=== PATIENT | female | born 1980 | race Caucasian/White ===

== ENCOUNTER 2017-09-26 02:34 | Emergency (ER) | payer SELFPAY ==
[~2017-09-26] VITALS: Ht 154.9 cm; Wt 56.8 kg
[2017-09-26 02:35] VITALS: BP 104/60; PULSE 78; RESP 16; TEMP 98.6; O2SAT 100
[2017-09-26] MEDS ORDERED: TRAZ50TA12 PO (03:26)
[2017-09-26] MEDS ORDERED: SERO50TA PO (03:26)
[2017-09-26] MEDS ORDERED: LEVO.075 PO (03:26)
[2017-09-26 03:52] VITALS: PULSE 63; O2SAT 98
[2017-09-26] MEDS ORDERED: SODIUM CHLOR 0.9% 1000 ML INJ 1,000 ML IV SCH (04:00)
[2017-09-26] MEDS ORDERED: KETOROLAC TROMETHAMINE 30 MG/ML (IVP) VIAL IV PUSH ONE (04:00)
[2017-09-26] MEDS ORDERED: ONDANSETRON HCL 4 MG/2 ML VIAL IV PUSH ONE (04:00)
[2017-09-26 04:18] LABS: AMORPHOUS SEDIMENT, URINE RARE; AUTOMATED NEUTROPHIL # 5.3 TH/MM3 (1.8-7.7); BASOPHIL # 0.1 TH/MM3 (0-0.2); BASOPHIL % 1.1 % (0.0-2.0); BILIRUBIN, URINE NEG (NEG); BLOOD, URINE NEG (NEG); EOSINOPHIL # 0.4 TH/MM3 (0-0.4); GLUCOSE,URINE NEG (NEG); HEMATOCRIT 35.3 % (35.0-46.0); HEMOGLOBIN 11.8 GM/DL (11.6-15.3); KETONE, URINE NEG (NEG); LYMPH % 28.7 % (9.0-44.0); LYMPHOCYTE # 2.6 TH/MM3 (1.0-4.8); MEAN CELL VOLUME 93.8 FL (80.0-100.0); MEAN CORPUSCULAR HEMOGLOBIN 31.3 PG (27.0-34.0); MEAN CORPUSCULAR HGB CONC 33.3 % (32.0-36.0); MEAN PLATELET VOLUME 7.4 FL (7.0-11.0); MONO % 7.5 % (0.0-8.0); MONOCYTE # 0.7 TH/MM3 (0-0.9); MUCUS URINE MANY /lpf (OCC); NEUT % 58.7 % (16.0-70.0); NITRITE,URINE NEG (NEG); PH, URINE 5.5 (5.0-8.5); PLATELET COUNT 310 TH/MM3 (150-450); RED BLOOD COUNT 3.76 MIL/MM3 (4.00-5.30); RED CELL DISTRIBUTION WIDTH 14.2 % (11.6-17.2); SQUAMOUS EPITHELIAL CELL URINE 53 /hpf (0-5); URINE COLOR YELLOW (YELLW/STRAW); URINE LEUKOCYTE ESTERASE LARGE (NEG); WHITE BLOOD COUNT 8.9 TH/MM3 (4.0-11.0)
[2017-09-26 04:37] LABS: ALBUMIN 3.6 GM/DL (3.4-5.0); AST (GOT) 32 U/L (15-37); BICARBONATE 23.2 MEQ/L (21.0-32.0); BLOOD UREA NITROGEN 9 MG/DL (7-18); CALCIUM 8.2 MG/DL (8.5-10.1); CHLORIDE 106 MEQ/L (98-107); CREATININE 1.04 MG/DL (0.50-1.00); GLOMERULAR FILTRATION RATE 60 ML/MIN (>89); GLUCOSE,RANDOM 111 MG/DL (74-106); SODIUM (NA) 138 MEQ/L (136-145)
[2017-09-26 04:38] LABS: ALT (GPT) 32 U/L (10-53)
[2017-09-26 04:40] LABS: ALKALINE PHOSPHATASE 84 U/L (45-117); TOTAL BILIRUBIN ADULT 0.4 MG/DL (0.2-1.0); TOTAL PROTEIN 7.7 GM/DL (6.4-8.2)
--- NOTE | 2017-09-26 04:51 | PD ---
HPI Chief Complaint: Abdominal Pain Time Seen by Provider: 03:38 Travel History International Travel<30 days: No Contact w/Intl Traveler<30days: No Traveled to known affect area: No History of Present Illness HPI 37-year-old female complains of abdominal pain with nausea vomiting and diarrhea. Patient states that she had intermittent abdominal pain for the past month however worse for the past 2 days. Patient denies any headache. Patient denies any chest pain or shortness of breath. Patient states that abdominal pain and cramping pain diffuse over the abdomen. Patient denies any pain radiation. Patient denies any dysuria frequency. Patient denies any vaginal discharge or bleeding. PFSH Past Medical History Thyroid Disease: Yes Tetanus Vaccination: < 5 Years Influenza Vaccination: No ?: Not Tubal Ligation: Yes Past Surgical History Section: Yes (X6) Cholecystectomy: Yes Gynecologic Surgery: Yes (OVARIAN CYST) Other Surgery: Yes (FINGER ) Social History Alcohol Use: No Tobacco Use: Yes Substance Use: No Allergies-Medications (Allergen,Severity, Reaction): Coded Allergies: metoclopramide (Verified Allergy, Severe, 09/26/17) JITTERY morphine (Verified Allergy, Severe, 09/26/17) ITCHINESS Reported Meds & Prescriptions Reported Meds & Active Scripts Active Reported Synthroid (Levothyroxine Sodium) 75 Mcg Tab 75 Mcg PO DAILY Seroquel (Quetiapine Fumarate) 50 Mg Tab 50 Mg PO BID Trazodone (Trazodone HCl) 50 Mg Tab 50 Mg PO HS Review of Systems General / Constitutional: No: Fever Eyes: No: Visual changes HENT: No: Headaches Cardiovascular: No: Chest Pain or Discomfort Respiratory: No: Shortness of Breath Gastrointestinal: Positive: Nausea, Vomiting, Diarrhea, Abdominal Pain Genitourinary: No: Dysuria Musculoskeletal: No: Pain Skin: No Rash Neurologic: No: Weakness Psychiatric: No: Depression Endocrine: No: Polydipsia Hematologic/Lymphatic: No: Easy Bruising Physical Exam Narrative GENERAL: Well-nourished, well-developed patient. SKIN: Focused skin assessment warm/dry. HEAD: Normocephalic. EYES: No scleral icterus. No injection or drainage. NECK: Supple, trachea midline. No JVD or lymphadenopathy. CARDIOVASCULAR: Regular rate and rhythm without murmurs, gallops, or rubs. RESPIRATORY: Breath sounds equal bilaterally. No accessory muscle use. GASTROINTESTINAL: Abdomen soft, nondistended. Patient has moderate diffuse tenderness over the abdomen. No rebound tenderness. No mass. MUSCULOSKELETAL: No cyanosis, or edema. BACK: Nontender without obvious deformity. No CVA tenderness. Data Data Last Documented VS Vital Signs Date Time Temp Pulse Resp B/P (MAP) Pulse Ox O2 Delivery O2 Flow Rate FiO2 09/26/17 04:06 Room Air 98 09/26/17 03:52 63 98 09/26/17 02:35 98.6 16 104/60 (75) Orders Orders Complete Blood Count With Diff (09/26/17 03:52) Comprehensive Metabolic Panel (09/26/17 03:52) Lipase (09/26/17 03:52) Urinalysis - C+S If Indicated (09/26/17 03:52) Ct Abd/Pel W Iv Contrast(Rout) (09/26/17 03:52) Iv Access Insert/Monitor (09/26/17 03:52) Ecg Monitoring (09/26/17 03:52) Oximetry (09/26/17 03:52) Ed Urine Pregnancytest Poc (09/26/17 03:52) Sodium Chlor 0.9% 1000 Ml Inj (Ns 1000 M (09/26/17 04:00) Ketorolac Inj (Toradol Inj) (09/26/17 04:00) Ondansetron Inj (Zofran Inj) (09/26/17 04:00) Urine Culture (09/26/17 03:58) Iohexol 350 Inj (Omnipaque 350 Inj) (09/26/17 05:28) Labs Laboratory Tests Test 09/26/17 03:58 White Blood Count 8.9 TH/MM3 Red Blood Count 3.76 MIL/MM3 Hemoglobin 11.8 GM/DL Hematocrit 35.3 % Mean Corpuscular Volume 93.8 FL Mean Corpuscular Hemoglobin 31.3 PG Mean Corpuscular Hemoglobin Concent 33.3 % Red Cell Distribution Width 14.2 % Platelet Count 310 TH/MM3 Mean Platelet Volume 7.4 FL Neutrophils (%) (Auto) 58.7 % Lymphocytes (%) (Auto) 28.7 % Monocytes (%) (Auto) 7.5 % Eosinophils (%) (Auto) 4.0 % Basophils (%) (Auto) 1.1 % Neutrophils # (Auto) 5.3 TH/MM3 Lymphocytes # (Auto) 2.6 TH/MM3 Monocytes # (Auto) 0.7 TH/MM3 Eosinophils # (Auto) 0.4 TH/MM3 Basophils # (Auto) 0.1 TH/MM3 CBC Comment DIFF FINAL Differential Comment Urine Color YELLOW Urine Turbidity HAZY Urine pH 5.5 Urine Specific [place] 1.025 Urine Protein 30 mg/dL Urine Glucose (UA) NEG mg/dL Urine Ketones NEG mg/dL Urine Occult Blood NEG Urine Nitrite NEG Urine Bilirubin NEG Urine Urobilinogen 2.0 MG/DL Urine Leukocyte Esterase LARGE Urine RBC 9 /hpf Urine WBC 49 /hpf Urine Squamous Epithelial Cells 53 /hpf Urine Amorphous Sediment RARE Urine Mucus MANY /lpf Microscopic Urinalysis Comment CULTURE INDICATED Blood Urea Nitrogen 9 MG/DL Creatinine 1.04 MG/DL Random Glucose 111 MG/DL Total Protein 7.7 GM/DL Albumin 3.6 GM/DL Calcium Level 8.2 MG/DL Alkaline Phosphatase 84 U/L Aspartate Amino Transf (AST/SGOT) 32 U/L Alanine Aminotransferase (ALT/SGPT) 32 U/L Total Bilirubin 0.4 MG/DL Sodium Level 138 MEQ/L Potassium Level 3.4 MEQ/L Chloride Level 106 MEQ/L Carbon Dioxide Level 23.2 MEQ/L Anion Gap 9 MEQ/L Estimat Glomerular Filtration Rate 60 ML/MIN Lipase 114 U/L [facility] Medical Decision Making Medical Screen Exam Complete: Yes Emergency Medical Condition: Yes Interpretation(s) 4:50 AM. CBC within normal limits. Potassium 3.4. Creatinine 1.04. Glucose 111. Calcium 8.2. UA positive for WBC and bacteria. 6:26 AM. Last Impressions Abdomen/Pelvis CT 09/26/17 0352 Signed Impressions: Service Date/Time: Tuesday, September 26, 2017 05:18 - CONCLUSION: 1. No acute abnormality. 2. Prior cholecystectomy. Bennett Reyes Jr., MD Differential Diagnosis Differential diagnoses including gastritis, PUD, pancreatitis, cholecystitis, colitis, UTI, pyelonephritis, nephrolithiasis. Narrative Course 37-year-old female with abdominal pain nausea vomiting diarrhea. Normal saline solution 1 25 cc an hour. Toradol 30 mg IV. Zofran 4 mg IV. Diagnosis Primary Impression: Gastritis Qualified Codes: K29.00 - Acute gastritis without bleeding Additional Impression: UTI (urinary tract infection) Qualified Codes: N30.00 - Acute cystitis without hematuria Patient Instructions: General Instructions Additional Instructions: Take medications as directed. Follow-up with personal physician and medical billing associate. Return if worse. Med/Other Pt SpecificInfo: Prescription(s) given Scripts Sulfamethoxazole-Trimethoprim (Bactrim DS) 800-160 Mg Tab 1 TAB PO BID for Infection, #14 TAB 0 Refills Prov: Theo Dick MD 09/26/17 Dicyclomine (Bentyl) 10 Mg Cap 10 MG PO TID Y for Bowel Management, #21 CAP 0 Refills Prov: Theo Dick MD 09/26/17 Sucralfate (Carafate) 1 Gram Tab 1 GM PO QID for Ulcer Prevention, #120 TAB 0 Refills On empty stomach Prov: Theo Dick MD 09/26/17 Pantoprazole (Protonix) 40 Mg Tab 40 MG PO DAILY for Reflux, #30 TAB 0 Refills Prov: Theo Dick MD 09/26/17 Disposition: 01 DISCHARGE HOME Condition: Stable Theo Dick MD Sep 26, 2017 04:51
[2017-09-26] MEDS ORDERED: IOHEXOL 350 MG/ML 10 ML VIAL (for RAD DIAG) IVCONTRAST ONE (05:28)
--- NOTE | 2017-09-26 06:09 | RADRPT ---
EXAM DATE/TIME: 09/26/2017 05:18 [place] COMPARISON: No previous studies available for comparison. INDICATIONS : Abdominal pain. IV CONTRAST: 100 cc Omnipaque 350 (iohexol) IV ORAL CONTRAST: No oral contrast ingested. RADIATION DOSE: 5.10 CTDIvol (mGy) MEDICAL HISTORY : None SURGICAL HISTORY : Tubal ligation. Cholecystectomy. section. ENCOUNTER: Initial ACUITY: 1 day PAIN SCALE: 7/10 LOCATION: abdomen TECHNIQUE: Volumetric scanning of the abdomen and pelvis was performed. Using automated exposure control and ad justment of the mA and/or kV according to patient size, radiation dose was kept as low as reasonably achievable to obtain optimal diagnostic quality images. DICOM format image data is available electro nically for review and comparison. FINDINGS: LOWER LUNGS: The visualized lower lungs are clear. LIVER: Homogeneous density without lesion. There is no dilation of the biliary tree. Gallbladder is surgica lly absent. SPLEEN: Normal size without lesion. PANCREAS: Within normal limits. KIDNEYS: Normal in size and shape. There is no mass, stone or hydronephrosis. ADRENAL GLANDS: Within normal limits. VASCULAR: There is no aortic aneurysm. BOWEL/MESENTERY: The stomach, small bowel, and colon demonstrate no acute abnormality. There is no free intraperitone al air or fluid. ABDOMINAL WALL: Within normal limits. RETROPERITONEUM: There is no lymphadenopathy. BLADDER: No wall thickening or mass. REPRODUCTIVE: Within normal limits. INGUINAL: There is no lymphadenopathy or hernia. MUSCULOSKELETAL: Within normal limits for patient age. CONCLUSION: 1. No acute abnormality. 2. Prior cholecystectomy. Bennett Reyes Jr., MD on September 26, 2017 at 6:05 Board Certified Radiologist. This report was verified electronically.
[2017-09-26] MEDS ORDERED: DICY10 PO (06:31)
[2017-09-26] MEDS ORDERED: BACT800T5 PO (06:31)
[2017-09-26] MEDS ORDERED: CARA1TAB6 PO (06:31)
[2017-09-26] MEDS ORDERED: PROT40TA PO (06:31)
== END 2017-09-26 06:38 | disposition home or self-care (01) ==
LOC: NEPC 02:34
DX: K29.00 Acute gastritis without bleeding (principal); N30.00 Acute cystitis without hematuria; B96.20 Unspecified Escherichia coli [E. coli] as the cause of diseases classified elsewhere; Z72.0 Tobacco use; Z88.5 Allergy status to narcotic agent; Z79.899 Other long term (current) drug therapy
CPT/HCPCS: 74177; 80053; 81001; 83690; 84703; 85025; 87077; 87086; 87186; 96361; 96374; 96375; 99284; J1885; J2405; J7030; Q9967

== ENCOUNTER 2017-11-29 21:39 | Emergency (ER) | payer SELFPAY ==
[~2017-11-29] VITALS: Ht 157.5 cm; Wt 72.0 kg
[~2017-11-29 21:39] MED LIST: BACT800T5 PO; CARA1TAB6 PO; DICY10 PO; LEVO.075 PO; PROT40TA PO; SERO50TA PO; TRAZ50TA12 PO
[2017-11-29 21:41] VITALS: BP 116/67; PULSE 106; RESP 18; TEMP 98.9; O2SAT 98
[2017-11-29] MEDS ORDERED: ONDANSETRON ODT 4 MG TAB PO ONE (22:00)
[2017-11-29] MEDS ORDERED: KETAMINE HCL 500 MG/10 ML VIAL IV PUSH STA (22:00)
[2017-11-29] MEDS ORDERED: CLINDAMYCIN 600 MG/NS PREMIX 50 ML IV ONE (22:00)
[2017-11-29] MEDS ORDERED: HYDROmorphone HCL PF 2 MG/ML VIAL IV PUSH ONE (22:00)
--- NOTE | 2017-11-29 22:12 | PD ---
HPI Chief Complaint: Skin Problem Time Seen by Provider: 21:48 Travel History International Travel<30 days: No Contact w/Intl Traveler<30days: No Traveled to known affect area: No History of Present Illness HPI Is a 37-year-old woman presents emergency department complaining of abscess in the left arm. She states over the past 4 days she had more painful tenderness redness swelling of the ulnar side of the left arm and the elbow. States history of IV drug use. No fevers. Pain severe. No aggravating or alleviating factors. No history of previous similar symptoms. History Past Medical History Narrative Medical IV drug use Tetanus Vaccination: Unknown Influenza Vaccination: No LMP: 09/06/17 Social History Alcohol Use: No Tobacco Use: Yes Allergies-Medications (Allergen,Severity, Reaction): Coded Allergies: metoclopramide (Verified Allergy, Severe, 11/29/17) JITTERY morphine (Verified Allergy, Severe, 11/29/17) ITCHINESS Reported Meds & Prescriptions Reported Meds & Active Scripts Active Bactrim DS (Sulfamethoxazole-Trimethoprim) 800-160 Mg Tab 1 Tab PO BID Bentyl (Dicyclomine HCl) 10 Mg Cap 10 Mg PO TID PRN Carafate (Sucralfate) 1 Gram Tab 1 Gm PO QID On empty stomach Protonix (Pantoprazole Sodium) 40 Mg Tab 40 Mg PO DAILY Reported Synthroid (Levothyroxine Sodium) 75 Mcg Tab 75 Mcg PO DAILY Seroquel (Quetiapine Fumarate) 50 Mg Tab 50 Mg PO BID Trazodone (Trazodone HCl) 50 Mg Tab 50 Mg PO HS Review of Systems Except as stated in HPI: all other systems reviewed are Neg Physical Exam Narrative GENERAL: 37-year-old woman, appears uncomfortable, nontoxic. SKIN: Focused skin assessment warm/dry. HEAD: Atraumatic. Normocephalic. EYES: Pupils equal and round. No scleral icterus. No injection or drainage. ENT: No nasal bleeding or discharge. Mucous membranes pink and moist. NECK: Trachea midline. No JVD. CARDIOVASCULAR: Regular rate and rhythm. No murmur appreciated. RESPIRATORY: No accessory muscle use. Clear to auscultation. Breath sounds equal bilaterally. GASTROINTESTINAL: Abdomen soft, non-tender, nondistended. Hepatic and splenic margins not palpable. MUSCULOSKELETAL: Focused evaluation of the left arm reveals obvious fluctuant swelling to the medial side of the volar forearm, proximally, near the elbow. There is significant swelling erythema redness surrounding it is exquisite tenderness. NEUROLOGICAL: Awake and alert. No obvious cranial nerve deficits. Motor grossly within normal limits. Normal speech. PSYCHIATRIC: Appropriate mood and affect; insight and judgment normal. Data Data Last Documented VS Vital Signs Date Time Temp Pulse Resp B/P (MAP) Pulse Ox O2 Delivery O2 Flow Rate FiO2 11/29/17 22:49 102 16 144/82 (102) 100 Nasal Cannula 2.00 11/29/17 21:41 98.9 Orders Orders Iv Access Insert/Monitor (11/29/17 22:00) Ketamine Inj (Ketalar Inj) (11/29/17 22:00) Hydromorphone Pf Inj (Dilaudid Pf Inj) (11/29/17 22:00) Ondansetron Odt (Zofran Odt) (11/29/17 22:00) Clindamycin 600 Mg/Ns Premix (Cleocin 60 (11/29/17 22:00) Wound Culture And Gram Stain (11/29/17 22:09) Lidocaine 1% Inj (50 Ml) (Xylocaine 1% I (11/29/17 22:15) MDM Medical Decision Making Medical Screen Exam Complete: Yes Emergency Medical Condition: Yes Differential Diagnosis Abscess, IV drug use, cellulitis, other Narrative Course Medical decision-making 37-year-old woman with a abscess in the apical fossa resulting from IV drug use. She looks well. She is uncomfortable. She has severe pain. She states she is educated to not opiates but she seems very hypersensitive. I offered ketamine sedation for the procedure which she is agreeable to. Will check culture. Will give IV clindamycin. Will wrap and elevate arm. FINAL: Abscess was drained using a loop closure technique and a Rachel drain. This will need to stay in place until the drainage has stopped, likely several days. Will also bring the patient back in 48 hours for repeat evaluation. The patient did not fill antibiotics or redness has not significantly improved, she would be candidate for Dalvance. Procedures Procedure Narrative After the risks and benefits were discussed the following procedure was performed: MODERATE SEDATION: The patient was placed on a quality assurance monitor final and pulse oximetry. An ambu bag and suction was immediately available at bedside. The patient was monitored by the nurse. Oxygen saturation, heart rate and blood pressure were monitored. Procedural sedation was acheived using 150 mg of ketamine. The patient was observed until awake and alert. Procedural Sedation time in attendance was 15 minutes. INCISION AND DRAINAGE OF ABSCESS: Patient was sedated with ketamine following informed consent. The area was prepped and was sterilely draped. A subcutaneous wheal of % Xylocaine 1 with a total number 7 mL was used to anesthetize the area. The area was properly anesthetized. Single small incision was initially made. Copious purulent drainage was expressed. Large abscess cavity was noted. Second small incision was made about 1 cm removed from the area of maximum fluctuance. This was into the abscess cavity as well. A [place] drain was threaded between the 2 holes to use a loop closure technique. The Rachel drain was then tied, and the ends shortened. Diagnosis Primary Impression: Abscess of left upper extremity Patient Instructions: General Instructions Additional Instructions: Take naproxen as needed for pain. Take clindamycin antibiotics as prescribed. Change bandage twice daily. Use Alok wrap for compression to help with pain and swelling. Elevate arm to reduce swelling. Return to the emergency department 48 hours for repeat wound check. Return emerged department sooner for any worsening pain swelling fevers or any other new or worsening symptoms. Med/Other Pt SpecificInfo: Prescription(s) given Scripts Naproxen (Naproxen) 500 Mg Tab 500 MG PO BID, #20 TAB 0 Refills Prov: Bridger Shirley MD 11/29/17 Clindamycin (Clindamycin) 300 Mg Cap 300 MG PO TID for Infection for 10 Days, CAP 0 Refills Prov: Bridger Shirley MD 11/29/17 Disposition: 01 DISCHARGE HOME Condition: Stable Bridger Shirley MD Nov 29, 2017 22:12
[2017-11-29] MEDS ORDERED: LIDOCAINE HCL 1% 50 ML VIAL INFIL ONE (22:15)
[2017-11-29 22:30] VITALS: O2SAT 98
[2017-11-29 22:49] VITALS: BP 144/82; PULSE 102; RESP 16; O2SAT 100
[2017-11-29] MEDS ORDERED: CLIN300C5 PO (22:56)
[2017-11-29] MEDS ORDERED: NAPR500T2 PO (22:56)
[2017-11-29 23:03] VITALS: BP 139/89
== END 2017-11-29 23:22 | disposition home or self-care (01) ==
LOC: NEPE 21:39
DX: L02.414 Cutaneous abscess of left upper limb (principal); Z72.0 Tobacco use; Z88.5 Allergy status to narcotic agent
CPT/HCPCS: 10061; 87070; 96365; 96375; 99284; J1170; 87205

== ENCOUNTER 2017-12-02 07:09 | Emergency (ER) | payer SELFPAY ==
[~2017-12-02] VITALS: Ht 154.9 cm; Wt 60.0 kg
[~2017-12-02 07:09] MED LIST changes: +CLIN300C5 PO; +NAPR500T2 PO
[2017-12-02 07:20] VITALS: BP 159/99; PULSE 85; RESP 16; TEMP 98.3; O2SAT 96
--- NOTE | 2017-12-02 07:44 | PD ---
HPI Chief Complaint: Skin Problem Time Seen by Provider: 07:30 Travel History International Travel<30 days: No Contact w/Intl Traveler<30days: No Traveled to known affect area: No History of Present Illness HPI 37-year-old female presents the ED for wound recheck. Patient had an abscess of the left upper arm with I&D performed on 11/29. She denies fever, chills, nausea, vomiting. She endorses throbbing 10/10 pain in the left arm, worse with touch and range of motion. She denies numbness, tingling, weakness, limitations to range of motion of the extremities. She endorses compliance with clindamycin. She has not been taking her Bactrim. [facility] Past Medical History Immunizations Current: Yes Thyroid Disease: Yes ?: Not Tubal Ligation: Yes Past Surgical History Section: Yes (X6) Cholecystectomy: Yes Gynecologic Surgery: Yes (OVARIAN CYST) Other Surgery: Yes (FINGER ) Social History Alcohol Use: No Tobacco Use: Yes Substance Use: Yes Allergies-Medications (Allergen,Severity, Reaction): Coded Allergies: metoclopramide (Unverified Allergy, Severe, 12/02/17) JITTERY morphine (Unverified Allergy, Severe, 12/02/17) ITCHINESS Reported Meds & Prescriptions Reported Meds & Active Scripts Active Naproxen 500 Mg Tab 500 Mg PO BID Clindamycin (Clindamycin HCl) 300 Mg Cap 300 Mg PO TID 10 Days Bentyl (Dicyclomine HCl) 10 Mg Cap 10 Mg PO TID PRN Protonix (Pantoprazole Sodium) 40 Mg Tab 40 Mg PO DAILY Review of Systems Except as stated in HPI: all other systems reviewed are Neg Physical Exam Narrative GENERAL: Well-nourished, well-developed anxious white female no acute distress. SKIN: Focused skin assessment warm/dry. SKIN: There are 2 1 cm incisions in the left antecubital space. There is a small amount of purulent drainage. There is a zone of inflammation around it but no lymphangitis. HEAD: Normocephalic. EYES: No scleral icterus. No injection or drainage. NECK: Supple, trachea midline. No JVD or lymphadenopathy. CARDIOVASCULAR: Regular rate and rhythm without murmurs, gallops, or rubs. RESPIRATORY: Breath sounds equal bilaterally. No accessory muscle use. GASTROINTESTINAL: Abdomen soft, non-tender, nondistended. MUSCULOSKELETAL: No cyanosis, or edema. BACK: Nontender without obvious deformity. No CVA tenderness. Data Data Last Documented VS Vital Signs Date Time Temp Pulse Resp B/P (MAP) Pulse Ox O2 Delivery O2 Flow Rate FiO2 12/02/17 07:20 98.3 85 16 159/99 (119) 96 Orders Orders Ibuprofen (Motrin) (12/02/17 07:45) Ed Discharge Order (12/02/17 07:44) MDM Medical Decision Making Medical Screen Exam Complete: Yes Emergency Medical Condition: Yes Differential Diagnosis Abscess versus cellulitis versus wound recheck versus other Narrative Course 37-year-old female presents the ED for recheck of abscess after I&D. Patient is afebrile on presentation. There are 2 1 cm wounds in the left antecubital space with some small amount of purulent drainage. Patient endorses compliance with clindamycin. I reviewed the patient's wound cultures, they grew strep. Drain was removed. Clean, dry dressing was applied. Patient's instructed to continue with clindamycin until every pill is gone, return for worsening symptoms. She indicated understanding of the instructions. She is stable and discharged home. Diagnosis Primary Impression: Encounter for recheck of abscess following incision and drainage [facility]errals: [facility] Additional Instructions: Keep your wound clean, dry and covered. Change the dressing anytime it becomes soiled or wet. Take [id number] medications as described on the label, as needed for pain. Ice packs applied to the area may also help to reduce your pain. Continue with clindamycin as prescribed until every dose is gone. Follow-up with the [facility]. Return to the ED for worsening symptoms or any urgent or emergent medical condition. Disposition: 01 DISCHARGE HOME Condition: Stable Adelaide Cuellar Dec 02, 2017 07:44
[2017-12-02] MEDS ORDERED: IBUPROFEN 600 MG TAB PO ONE (07:45)
== END 2017-12-02 08:02 | disposition home or self-care (01) ==
LOC: NEPD 07:09
DX: Z51.89 Encounter for other specified aftercare (principal)
CPT/HCPCS: 99281